=== PATIENT | female | born 1975 | race Caucasian/White ===

== ENCOUNTER → 2020-08-02 | Outpatient (CLI) | payer OTHER ==
[~2020-08-02] MED LIST: IBUPROFEN 600600 M1 PO; PEPCID20 MG PO; TYLENOL325 MG PO; VALTREX 500 MG500 MG PO
== END ==
LOC: LAB 13:44
PROVIDERS: ATTEND Family Medicine
DX: Z20.828 Contact with and (suspected) exposure to other viral communicable diseases (principal)